=== PATIENT | male | born 1990 | race Hispanic/Latino ===

== ENCOUNTER 2016-11-07 22:37 | Emergency (ER) ==
[~2016-11-07] VITALS: Ht 175.3 cm; Wt 79.5 kg
[2016-11-07 22:38] VITALS: BP 114/60
== END 2016-11-07 22:57 | disposition left against medical advice (07) ==
LOC: M ED 22:37
DX: S49.90XA Unspecified injury of shoulder and upper arm, unspecified arm, initial encounter (principal); X58.XXXA Exposure to other specified factors, initial encounter; Y92.89 Other specified places as the place of occurrence of the external cause; Y93.89 Activity, other specified; Y99.8 Other external cause status; Z53.29 Procedure and treatment not carried out because of patient's decision for other reasons

== ENCOUNTER 2018-10-25 11:16 | Emergency (ER) | payer OTHER ==
[~2018-10-25] VITALS: Ht 175.3 cm; Wt 84.1 kg
--- NOTE | 2018-10-25 13:15 | REP ---
LUMBAR SPINE, FIVE VIEWS: HISTORY: Trauma. There is a compression fracture of the L1 vertebral body with minimal height loss. The intervertebral discs are normal in height. The facet joints are normal in appearance. There are 3 mm of retrolisthesis of L5 on S1. IMPRESSION: There is a compression fracture of the L1 vertebral body with minimal height loss. It cannot be determined if this is acute or chronic. Limited CT of the lumbar spine may be helpful for further evaluation. Electronically Signed by Juventino Nolan MD 10/25/2018 01:26 P
--- NOTE | 2018-10-25 13:29 | REP ---
BILATERAL FOOT, EIGHT VIEWS: HISTORY: Trauma. RIGHT FOOT: There is no acute fracture or dislocation. The joint spaces are normal in appearance. IMPRESSION: There is no acute fracture or dislocation. LEFT FOOT: There is no acute fracture or dislocation. The joint spaces are normal in appearance. IMPRESSION: There is no acute fracture or dislocation. Electronically Signed by Juventino Nolan MD 10/25/2018 02:01 P
--- NOTE | 2018-10-25 13:30 | REP ---
BILATERAL CALCANEUS: Two views of each calcaneus performed. There is no acute fracture or dislocation. On the right there is a small rounded calcification at the posterior superior margin of the calcaneus along the margin of the Achilles tendon, nonacute. On the left there is an os trigonum. IMPRESSION: No acute fracture or dislocation. Electronically Signed by Sudheer Gates MD 10/27/2018 07:48 A
--- NOTE | 2018-10-25 13:32 | REP ---
THORACIC SPINE: Three AP and lateral views of the thoracic spine are performed. I see no acute fracture or dislocation. Vertebral bodies are normal in height and are well aligned with normal thoracic kyphosis. Thoracic disc spaces are maintained. Posterior elements are intact. IMPRESSION: No acute fracture or dislocation. Electronically Signed by Sudheer Gates MD 10/27/2018 07:48 A
[2018-10-25 14:54] VITALS: BP 136/83
--- NOTE | 2018-10-25 15:12 | REP ---
CT BILATERAL FEET: CT bilateral feet performed in the axial plane. Sagittal and coronal reconstruction images are performed. There is a small chip fracture at the anterior distal end of the right tibia. This is of indeterminate age. I see no other evidence of acute fracture or dislocation. Calcaneus is intact bilaterally. Two small calcific densities at the posterior superior margin of the right calcaneus do not represent acute fractures and are seen along the anterior margin of the distal end of the Achilles tendon. Oval calcification superior to the left calcaneus posterior aspect represents a nonspecific calcific body measuring 6 x 4 mm. There is an os trigonum on the left as well. No other significant osseous abnormalities are seen. Electronically Signed by Sudheer Gates MD 10/27/2018 07:51 A
== END 2018-10-25 15:26 | disposition home or self-care (01) ==
LOC: M ED 11:16
DX: S90.32XA Contusion of left foot, initial encounter (principal); S32.010A Wedge compression fracture of first lumbar vertebra, initial encounter for closed fracture; S82.51XA Displaced fracture of medial malleolus of right tibia, initial encounter for closed fracture; X58.XXXA Exposure to other specified factors, initial encounter; Y92.9 Unspecified place or not applicable; Y93.9 Activity, unspecified; Y99.9 Unspecified external cause status

== ENCOUNTER 2020-02-21 17:15 | Emergency (ER) | payer OTHER ==
[~2020-02-21] VITALS: Ht 175.3 cm; Wt 89.6 kg
[2020-02-21 17:17] VITALS: BP 146/75
--- NOTE | 2020-02-21 19:32 | REP ---
INDICATION: swelling lateral. COMPARISON: Comparison radiographs of the calcanei are from October 25, 2018.. TECHNIQUE: Four views. FINDINGS: Ankle mortise is intact. No acute fracture is seen. There is soft tissue swelling about the lateral malleolus. Soft tissue swelling is seen anteriorly and I cannot exclude an ankle joint effusion. There is a fairly large os trigonum and adjacent accessory ossicle is seen at the posterior aspect of the talus similar to the prior radiographs. IMPRESSION: No fracture seen. Question ankle joint effusion. Lateral soft tissue swelling. Large os trigonum and adjacent posteriorly situated accessory ossicle. <Electronically signed by Gilmar Abdul > 02/21/201927
== END 2020-02-21 20:07 | disposition home or self-care (01) ==
LOC: M ED 17:15
DX: Q68.8 Other specified congenital musculoskeletal deformities (principal)